=== PATIENT | male | born 1975 | race African-American/Black ===

== ENCOUNTER 2024-09-09 04:34 | Emergency (ER) | payer SELFPAY ==
[2024-09-09 04:56] VITALS: PULSE 68; RESP 20; TEMP 97.9
[2024-09-09] MEDS ORDERED: DEXAMETHASONE 4 MG TABLET (FP) ONE (05:03)
[2024-09-09] MEDS ORDERED: KETOROLAC TROMETHAMINE 60 MG/2 ML VIAL ONE (05:04)
[2024-09-09] MEDS ORDERED: LIDOCAINE 4% PATCH TP ONE (05:08)
[2024-09-09] MEDS: DEXAMETHASONE 4 MG TABLET (FP) PO ONE (05:09)
[2024-09-09] MEDS: KETOROLAC TROMETHAMINE 60 MG/2 ML VIAL IM ONE (05:09)
[2024-09-09] MEDS: LIDOCAINE 5% TOPICAL PATCH TP ONE (05:10)
[2024-09-09 05:33] VITALS: BP 150/100
[2024-09-09] MEDS ORDERED: LIDOCAINE PATCH REMOVAL MC SCH (22:00)
== END 2024-09-09 05:33 | disposition home or self-care (01) ==
LOC: JER 04:34
PROC: 3E0133Z Introduction of Anti-inflammatory into Subcutaneous Tissue, Percutaneous Approach (ICD-10-PCS; principal; 2024-09-09)
DX: M25.511 Pain in right shoulder (principal)
CPT/HCPCS: 99284-25